=== PATIENT | male | born 1980 | race Caucasian/White ===

== ENCOUNTER 2018-07-03 01:35 | Emergency (ER) | payer SELFPAY ==
[2018-07-03] MEDS ORDERED: HYDROCOD/APAP 5/325 PREPACK#6 BTL TAKEHOME ONE (02:32)
--- NOTE | 2018-07-03 02:32 | EDPHY ---
H & P Stated Complaint: BILAT ARM/WRIST PAIN 2-3 DAYS, WORKS LONG HRS DAYS Time Seen by Provider: 07/03/18 01:49 HPI/ROS: HPI The patient presents with bilateral wrist pain, worse over the last 2-3 days. He has had this pain for several months and was diagnosed with carpal tunnel syndrome by EMG performed in [place] where he lives. He is here for the next 2 weeks on contract work for his job. He has been doing light duty at work for the last several days. He has been taking ibuprofen and gabapentin as well as Tylenol around the clock. He is using wrist splints and uses ice packs as well at night. For the last 2 nights he has been unable to sleep because of the pain.. REVIEW OF SYSTEMS 10 systems were reviewed and negative with the exception of the elements mentioned in the history of present illness. PMHx: Carpal tunnel syndrome as above Soc Hx: Here on work from [place] PHYSICAL General Appearance: Alert, no distress Eyes: Pupils equal and round no pallor or injection ENT, Mouth: Mucous membranes moist Respiratory: Breathing comfortably Neurological: A&O, moves all extremities Skin: Warm and dry, no rashes Extremities: symmetrical, full range of motion Psychiatric: Patient is oriented X 3, there is no agitation Source: Patient Exam Limitations: No limitations - Personal History Current Tetanus/Diphtheria Vaccine: Yes Current Tetanus Diphtheria and Acellular Pertussis (TDAP): Yes Tetanus Vaccine Date: 2014 - Medical/Surgical History Hx Asthma: No Hx Chronic Respiratory Disease: No Hx Diabetes: No Hx Cardiac Disease: No Hx Renal Disease: No Hx Cirrhosis: No Hx Alcoholism: No Hx HIV/AIDS: No Hx Splenectomy or Spleen Trauma: No Other PMH: DENIES - Social History Smoking Status: Never smoked Constitutional: Initial Vital Signs Temperature (C) 36.6 C 07/03/18 01:42 Heart Rate 79 07/03/18 01:42 Respiratory Rate 18 07/03/18 01:42 Blood Pressure 116/75 07/03/18 01:42 O2 Sat (%) 95 07/03/18 01:42 O2 Delivery Mode Room Air Allergies/Adverse Reactions: amoxicillin Allergy (Verified 07/03/18 01:44) tramadol [From Ultram] Allergy (Verified 07/03/18 01:44) Home Medications: Medication Instructions Recorded Gabapentin 1,200 mg PO TID 07/03/18 Hydrocodone/Acetaminophen 1 each PO Q6H PRN #10 tablet 07/03/18 [Hydrocodon-Acetaminophn 10-325] Ibuprofen [Ibu] 600 mg PO 07/03/18 predniSONE [Prednisone] 40 mg PO DAILY 4 Days tablet 07/03/18 Medical Decision Making Differential Diagnosis: 37-year-old male with known carpal tunnel syndrome awaiting operation in about 2 weeks, here for work with increasing wrist pain despite treatment with ibuprofen, acetaminophen, gabapentin. He was previously on prednisone and hydrocodone with some improvement in his symptoms. I have looked him up in the PDMP and he does not have any record. I will prescribe him a short course of hydrocodone acetaminophen and prednisone. I have advised him to follow up with his usual doctors when he returns home. - Data Points Medications Given: Discontinued Medications Hydrocodone Bitart/Acetaminophen ([place] 5/325mg Prepack#6) 1 btl TAKEHOME EDNOW ONE Stop: 07/03/18 02:33 Last Admin: 07/03/18 02:45 Dose: 1 btl Departure - Departure Disposition: Home, Routine, Self-Care Clinical Impression: Carpal tunnel syndrome on both sides Condition: Good Instructions: Hydrocodone/Acetaminophen (By mouth), Prednisone (By mouth), Paresthesia (ED), Carpal Tunnel Surgery (DC) Referrals: EMILIE ALVAREZ [Other] - As per Instructions Stand Alone Forms: Work Limited Duty Prescriptions: Hydrocodone/Acetaminophen [Hydrocodon-Acetaminophn 10-325] 1 each PO Q6H PRN # 10 tablet PRN Reason: Pain, Breakthrough predniSONE [Prednisone] 40 mg PO DAILY 4 Days tablet
[2018-07-03 02:53] VITALS: BP 120/77
== END 2018-07-03 02:50 | disposition home or self-care (01) ==
DX: G56.03 Carpal tunnel syndrome, bilateral upper limbs (principal)